=== PATIENT | female | born 1980 | race Two or more races ===

== ENCOUNTER 2019-02-15 04:01 | Emergency (ER) | payer OTHER ==
[~2019-02-15] VITALS: Ht 152.4 cm; Wt 74.5 kg
[2019-02-15] MEDS ORDERED: PROMETHAZINE 25 MG/ML, 1ML IM STA (04:19)
[2019-02-15] MEDS ORDERED: LIDOCAINE 1%-EPI 1:100K, 20ML SQ ONE (04:30)
[2019-02-15] MEDS ORDERED: OXYcodone/APAP 5/325MG TABLET PO ONE (04:30)
[2019-02-15] MEDS ORDERED: OXYcodone/APAP 5/325MG TABLET ONE (04:32)
[2019-02-15] MEDS ORDERED: LIDOCAINE 1%-EPI 1:100K, 20ML ONE (04:32)
--- NOTE | 2019-02-15 04:38 | NUR ---
PT. TO ED WITH C/O RED BUMPS TO VAGINAL AREA; UPON FURTHER ASSESSMENT WITH JAMES HAYS PT. HAS A CYST AND CYST TO BE DRAINED BY JAMES HAYS. PT. MOVED TO ED 17 AND PLACED ON GUYNIE BED. PT. HAS BEEN MEDICATED PER MAR. PER PT. HAS AN ALLERGY TO AN UNKNOWN ALLERGY MEDICATION. PHENERGAN D/C BECAUSE OF THIS. PT. OFFERED CRACKERS AFTER OK FROM JAMES HAYS. REPORT TO CONOR DELONG TO ASSUME PT. CARE.
[2019-02-15] MEDS ORDERED: CEPHALEXIN 500 MG CAPSULE ONE (05:05)
[2019-02-15] MEDS ORDERED: SULFAMETH./TRIMETHOPRIM DS 800MG/160MG TABLET ONE (05:05)
--- NOTE | 2019-02-15 05:17 | NUR ---
tavia lindsay made incision after given lido sq injection, pus was drained & packed dressing was applied. given po abx given instruction for shower or changing dressing pt and understood
[2019-02-15] MEDS ORDERED: SULFAMETH./TRIMETHOPRIM DS 800MG/160MG TABLET PO ONE (05:30)
[2019-02-15] MEDS ORDERED: CEPHALEXIN 500 MG CAPSULE PO ONE (05:30)
--- NOTE | 2019-02-15 05:43 | NUR ---
pt stated feels better now vss stable
--- NOTE | 2019-02-15 05:59 | NUR ---
given dc instruction with snack for tummy pt stated " i feel much better now zz' pt up ambulated to check out with stable gait vss stable
[2019-02-15 06:00] VITALS: BP 116/60
== END 2019-02-15 06:16 | disposition home or self-care (01) ==
LOC: ED 05:44
DX: L05.01 Pilonidal cyst with abscess (principal)
CPT/HCPCS: 10080; 99284